=== PATIENT | male | born 1945 | race Two or more races ===

== ENCOUNTER 2024-04-22 15:23 | Emergency (ER) | payer OTHER ==
[~2024-04-22] VITALS: Ht 193 cm; Wt 133.4 kg
[2024-04-22] MEDS ORDERED: LIPITOR40 M1 PO (16:31)
[2024-04-22] MEDS ORDERED: CELEXA10 MG (16:31)
[2024-04-22] MEDS ORDERED: [UNRECOGNIZED DRUG - CODE] (16:31)
[2024-04-22] MEDS ORDERED: SYNTHROID50 MCG PO (16:31)
[2024-04-22] MEDS ORDERED: CATAPRES0.3 MG PO (16:31)
[2024-04-22] MEDS ORDERED: AVAPRO300 MG PO (16:32)
[2024-04-22] MEDS ORDERED: KETOROLAC TROMETHAMINE 30 MG VIAL IM ONE (18:00)
[2024-04-22] MEDS ORDERED: ORPHENADRINE CITRATE 30 MG/ML AMPUL IM ONE (18:00)
[2024-04-22] MEDS ORDERED: METAXALONE400 MG PO (19:13)
== END 2024-04-22 20:30 ==
LOC: ER 15:25
DX: M54.10 Radiculopathy, site unspecified (principal); I10 Essential (primary) hypertension; E03.8 Other specified hypothyroidism
CPT/HCPCS: 96372; 99282; J1885; J2360